=== PATIENT | female | born 1990 | race Caucasian/White ===

== ENCOUNTER 2019-05-15 16:40 | Emergency (ER) | payer OTHER ==
[2019-05-15 16:50] VITALS: BP 140/90; PULSE 116; TEMP 98.6; BMI 28.1
[2019-05-15] MEDS ORDERED: ALBUTEROL SO4 2.5/IPRATROPIUM 0.5 INH SOL 3 ML VIAL.NEB. NEB ONE (17:04)
--- NOTE | 2019-05-15 17:10 | PDOC ---
History of Present Illness - General Chief Complaint: Respiratory Stated Complaint: COLD SYMPTOMS Time Seen by Provider: 05/15/19 16:56 History Source: Patient Exam Limitations: No Limitations Past History - Past Medical History Allergies/Adverse Reactions: Allergies Allergy/AdvReac Type Severity Reaction Status Date / Time shellfish derived Allergy Severe Verified 05/15/19 16:50 No Known Drug Allergies AdvReac Verified 05/15/19 16:50 Home Medications: Ambulatory Orders Albuterol 2.5/Ipratropium 0.5 [Duoneb -] 1 neb NEB Q4H PRN #30 vial 05/15/19 Prednisone [Deltasone] 40 mg PO DAILY #8 tablet 05/15/19 Asthma: No Cancer: No Cardiac Disorders: No COPD: No Diabetes: No HTN: No Seizures: No Thyroid Disease: No - Reproductive History (#): 8 Para: 3 Cervical CA: No Dysfunctional Uterine Bleeding: No Ectopic : No Endometrial CA: No Polycystic Ovaries: No Therapeutic (s) & number: No Tubal Ligation: No Spontaneous : 4 - Immunization History Immunization Up to Date: Yes - Suicide/Smoking/Psychosocial Hx Smoking Status: No Smoking History: Never smoked Have you smoked in the past 12 months: No Number of Cigarettes Smoked Daily: 0 Hx Alcohol Use: No Drug/Substance Use Hx: No Substance Use Type: None Hx Substance Use Treatment: No *Physical Exam - Vital Signs Last Vital Signs Temp Pulse Resp BP Pulse Ox 98.6 F 116 H 18 140/90 98 05/15/19 16:47 05/15/19 16:47 05/15/19 16:47 05/15/19 16:47 05/15/19 16:47 - Physical Exam General Appearance: No: Apparent Distress HEENT: positive: Normal Voice, Nasal Congestion. negative: Muffled/Hoarse voice , Pharyngeal Erythema, Tonsillar Exudate, Tonsillar Erythema, Rhinorrhea, Sinus Tenderness Respiratory/Chest: positive: Wheezing (expiratory). negative: Respiratory Distress Cardiovascular: positive: Regular Rhythm, Regular Rate, S1, S2. negative: Murmur Integumentary: positive: Normal Color Neurologic: positive: Alert ED Treatment Course - RADIOLOGY Radiology Studies Ordered: Category Date Time Status CHEST PA & LAT [RAD] Stat Radiology 05/15/19 17:03 Ordered Medical Decision Making - Medical Decision Making 29 y/o F with no sig pmh, nonsmoker presents with rhinorrhea, congestion and cough x4 days along with chest pain/tightness with coughing and some SOB due to coughing. Also with post-tussive emesis. States she had fever of 101.3 at home today but did not take any antipyretics today. Denies recent travel, sick contacts, ear pain, throat pain, abd pain, diarrhea. Is not on OCPs. Probable bronchitis Plan: duonebs Given report of fever, will also get CXR to r/o PNA 05/15/19 17:08 CXR negative Patient feeling better after duonebs Also given Tylenol and prednisone stable for dc 05/15/19 18:24 *DC/Admit/Observation/Transfer Diagnosis at time of Disposition: Acute bronchitis Qualifiers: Bronchitis organism: unspecified organism Qualified Code(s): J20.9 - Acute bronchitis, unspecified - Discharge Dispostion Disposition: HOME Condition at time of disposition: Improved Decision to Admit order: No - Prescriptions Prescriptions: Albuterol 2.5/Ipratropium 0.5 [Duoneb -] 1 neb NEB Q4H PRN #30 vial PRN Reason: Shortness Of Breath Prednisone [Deltasone] 40 mg PO DAILY #8 tablet - Referrals - Patient Instructions Printed Discharge Instructions: DI for Acute Bronchitis Additional Instructions: Thank you for choosing [facility]. It was a pleasure taking care of you. Use Albuterol as needed for shortness of breath Take steroids as prescribed Recommend rest Be sure to stay hydrated Follow-up with your doctor in 2 days Return to the Emergency Department if your symptoms worsen or persist or have other concerning symptoms. - Post Discharge Activity
[2019-05-15] MEDS: ALBUTEROL SO4 2.5/IPRATROPIUM 0.5 INH SOL 3 ML VIAL.NEB. NEB SCH ×3 (17:19→17:46)
[2019-05-15] MEDS ORDERED: ACETAMINOPHEN 325 MG TABLET (FP) PO ONE (18:17)
[2019-05-15] MEDS ORDERED: predniSONE 20 MG TABLET (UD) PO ONE (18:18)
[2019-05-15] MEDS ORDERED: ACETAMINOPHEN 325 MG TABLET (FP) ONE (18:24)
[2019-05-15] MEDS ORDERED: predniSONE 20 MG TABLET (UD) ONE (18:24)
== END 2019-05-15 18:33 | disposition home or self-care (01) ==
LOC: JERFT 16:40
PROC: 3E0F7GC Introduction of Other Therapeutic Substance into Respiratory Tract, Via Natural or Artificial Opening (ICD-10-PCS; principal; 2019-05-15)
DX: J20.9 Acute bronchitis, unspecified (principal)
CPT/HCPCS: 71046-TC-FY; 94640; 99282-25

== ENCOUNTER 2021-01-29 07:19 | Emergency (ER) | payer OTHER ==
[2021-01-29 07:34] VITALS: TEMP 97.9; BMI 29.4
[2021-01-29] MEDS ORDERED: ONDANSETRON 4 MG/2 ML VIAL IVPUSH ONE (07:58)
[2021-01-29] MEDS ORDERED: MAG HYDROX/AL HYDROX/SIMETH -MYLANTA- ORAL SUSPENSION PO ONE (07:58)
[2021-01-29] MEDS ORDERED: MAG HYDROX/AL HYDROX/SIMETH 30 ML UNIT-DOSE CUP ONE (09:07)
[2021-01-29] MEDS ORDERED: ONDANSETRON 4 MG/2 ML VIAL ONE (09:07)
[2021-01-29 10:06] LABS: BASO % 0.3 % (0-2.0); EOS % 1.2 % (0-4.5); HEMATOCRIT 43.5 % (32.4-45.2); HEMOGLOBIN 15.3 GM/dL (10.7-15.3); LYMPH % 33.4 % (8-40); MCH 31.1 pg (25.7-33.7); MCHC 35.1 g/dl (32.0-36.0); MEAN CELL VOLUME 88.6 fl (80-96); MEAN PLT VOLUME 7.8 fl (7.5-11.1); NEUT % 58.1 % (42.8-82.8); PH,URINE 6.5 (5.0-8.0); PLATELET COUNT 294 K/MM3 (134-434); RBC 4.91 M/mm3 (3.60-5.2); RDW 13.5 % (11.6-15.6); URINE APPEARANCE CLOUDY; URINE BILIRUBIN NEGATIVE (NEGATIVE); URINE COLOR YELLOW; URINE GLUCOSE (UA) NEGATIVE (NEGATIVE); URINE KETONE NEGATIVE (NEGATIVE); URINE LEUK ESTERASE NEGATIVE (NEGATIVE); URINE NITRITE NEGATIVE (NEGATIVE); URINE PROTEIN NEGATIVE (NEGATIVE); URINE UROBILINOGEN 0.2 mg/dL (0.2-1.0)
[2021-01-29 10:28] LABS: ALBUMIN 3.7 g/dl (3.4-5.0); CALCIUM 9.2 mg/dL (8.5-10.1)
[2021-01-29 10:29] LABS: BLOOD UREA NITROGEN 13.3 mg/dL (7-18)
[2021-01-29 10:32] LABS: CREATININE 0.6 mg/dL (0.55-1.3)
[2021-01-29 10:33] LABS: BILIRUBIN,TOTAL 0.5 mg/dL (0.2-1); TOT PROT 7.6 g/dl (6.4-8.2)
[2021-01-29 11:35] VITALS: BP 130/88; PULSE 70
== END 2021-01-29 11:35 | disposition home or self-care (01) ==
LOC: JER 07:19
PROC: 3E033NZ Introduction of Analgesics, Hypnotics, Sedatives into Peripheral Vein, Percutaneous Approach (ICD-10-PCS; principal; 2021-01-29)
DX: K29.00 Acute gastritis without bleeding (principal)
CPT/HCPCS: 36415; 76705-TC; 80053; 81003; 83690; 85025; 87086; 99284-25

== ENCOUNTER 2021-08-21 15:17 | Emergency (ER) | payer OTHER ==
[2021-08-21 15:32] VITALS: BP 134/84; PULSE 87; TEMP 98.2; BMI 34.5
[2021-08-21 20:28] LABS: URINE APPEARANCE CLEAR; URINE BILIRUBIN NEGATIVE (NEGATIVE); URINE COLOR YELLOW; URINE GLUCOSE (UA) NEGATIVE (NEGATIVE); URINE KETONE NEGATIVE (NEGATIVE); URINE LEUK ESTERASE NEGATIVE (NEGATIVE); URINE NITRITE NEGATIVE (NEGATIVE); URINE PROTEIN NEGATIVE (NEGATIVE); URINE UROBILINOGEN 0.2 mg/dL (0.2-1.0)
[2021-08-21] MEDS ORDERED: KETOROLAC TROMETHAMINE 15 MG/ML VIAL IVPUSH ONE (20:36)
[2021-08-21] MEDS ORDERED: KETOROLAC TROMETHAMINE 30 MG/1 ML VIAL ONE (20:38)
[2021-08-21 20:42] LABS: BASO % 0.7 % (0-2.0); EOS % 0.7 % (0-4.5); HEMATOCRIT 43.7 % (32.4-45.2); HEMOGLOBIN 15.4 GM/dL (10.7-15.3); LYMPH % 30.9 % (8-40); MCH 31.6 pg (25.7-33.7); MCHC 35.3 g/dl (32.0-36.0); MEAN CELL VOLUME 89.6 fl (80-96); MEAN PLT VOLUME 7.8 fl (7.5-11.1); MONO % 6.1 % (3.8-10.2); NEUT % 61.6 % (42.8-82.8); PLATELET COUNT 353 10^3/uL (134-434); RBC 4.89 M/mm3 (3.60-5.2)
[2021-08-21 20:49] LABS: INR 0.99 (0.83-1.09); PROTHROMBIN TIME (PATIENT) 11.1 SEC (9.7-13.0)
[2021-08-21 20:52] LABS: ACTIVATED PTT 29.7 SECONDS (25.2-36.5)
[2021-08-21 20:59] LABS: CHLORIDE 106 mmol/L (98-107); SODIUM 139 mmol/L (136-145)
[2021-08-21 21:01] LABS: CALCIUM 8.8 mg/dL (8.5-10.1)
[2021-08-21 21:02] LABS: ALBUMIN 3.7 g/dl (3.4-5.0); ANION GAP 9 MMOL/L (8-16); BLOOD UREA NITROGEN 13.9 mg/dL (7-18); CO2 23 mmol/L (21-32); GLUCOSE,RANDOM 71 mg/dL (74-106); LIPASE 108 U/L (73-393)
[2021-08-21 21:05] LABS: CREATININE 0.7 mg/dL (0.55-1.3); SGOT/AST 17 U/L (15-37); SGPT/ALT 16 U/L (13-61)
[2021-08-21 21:07] LABS: ALK PHOS 104 U/L (45-117); BILIRUBIN,TOTAL 0.4 mg/dL (0.2-1)
== END 2021-08-21 21:55 | disposition home or self-care (01) ==
LOC: JER 15:17
PROC: 3E0333Z Introduction of Anti-inflammatory into Peripheral Vein, Percutaneous Approach (ICD-10-PCS; principal; 2021-08-21)
DX: N83.8 Other noninflammatory disorders of ovary, fallopian tube and broad ligament (principal); R10.84 Generalized abdominal pain
CPT/HCPCS: 36415; 76830-TC; 80053; 81003; 83690; 84702; 84703; 85025; 85610; 85730; 86850; 86900; 86901; 87086; 87661; 99284-25; C9803-CS; U0003; U0005

== ENCOUNTER 2022-02-24 12:35 | Emergency (ER) | payer OTHER ==
[2022-02-24] MEDS ORDERED: FAMOTIDINE 20 MG TABLET PO ONE (12:40)
[2022-02-24] MEDS ORDERED: DEXAMETHASONE SOD PHOSPHATE 10 MG/1 ML VIAL IM ONE (12:40)
[2022-02-24] MEDS ORDERED: ALBUTEROL SO4 2.5/IPRATROPIUM 0.5 INH SOL 3 ML VIAL.NEB. NEB ONE (12:41)
[2022-02-24] MEDS ORDERED: EPINEPHrine 1:1,000 0.3 MG/0.3 ML SYR IM ONE (12:52)
[2022-02-24] MEDS ORDERED: EPINEPHrine/PF 1 MG/1 ML (1:1,000) AMPULE ONE ×2 (12:53→13:07)
[2022-02-24 13:02] VITALS: BMI 30.1
[2022-02-24 16:51] VITALS: TEMP 98.6
[2022-02-24 18:14] VITALS: BP 146/93; PULSE 95
== END 2022-02-24 18:14 | disposition home or self-care (01) ==
LOC: JER 12:35
PROC: 3E0F7GC Introduction of Other Therapeutic Substance into Respiratory Tract, Via Natural or Artificial Opening (ICD-10-PCS; principal; 2022-02-24)
PROC: 3E023GC Introduction of Other Therapeutic Substance into Muscle, Percutaneous Approach (ICD-10-PCS; 2022-02-24)
PROC: 3E023GC Introduction of Other Therapeutic Substance into Muscle, Percutaneous Approach (ICD-10-PCS; 2022-02-24)
PROC: 3E023GC Introduction of Other Therapeutic Substance into Muscle, Percutaneous Approach (ICD-10-PCS; 2022-02-24)
DX: T78.00XA Anaphylactic reaction due to unspecified food, initial encounter (principal)
CPT/HCPCS: 99284-25; J0171; J1100